=== PATIENT | male | born 1965 | race Caucasian/White ===

== ENCOUNTER → 2025-05-11 13:27 | Outpatient (REF) | payer SELFPAY | LOC: HWRAD 13:27 | PROVIDERS: ATTENDING PHYSICIAN Physician Assistant | DX: Z76.89 Persons encountering health services in other specified circumstances (principal); Z87.898 Personal history of other specified conditions; E78.00 Pure hypercholesterolemia, unspecified | CPT/HCPCS: 75571 ==